=== PATIENT | male | born 1970 | race Caucasian/White ===

== ENCOUNTER 2018-06-06 15:30 | Outpatient (RCR) | payer OTHER, SELFPAY ==
--- NOTE | 2018-05-13 18:13 | HP.PTEVAL ---
Patient's Visit Information CHERELLE COATES is a 47 year old M referred to Physical Therapy by Tejas Austin MD with a diagnosis of L glut med weakness. Date of Evaluation: 05/13/18 Physical Therapist: Wyatt Godfrey DPT, OCS, CSCS - Visit Plan Frequency: 1x/Week Duration: 4-6 Weeks Plan: weekly x 4-6 for stretching(taught to patient today and progress to L and core strength. LB ROM, progression weekly to HEP. Next : SL SLR, clamshell, inchworms, heel raises and toe raises and step up. also PPU. Then: machines in gym for quad, hip abd, glut, DF and core strength. Be conscious of possible back contributins throughout as he has a history of LBO and surgery and is weak in the L side LE with diminished reflexes L patella, possible L45. - Subjective Findings: Had problems with L hip for a bit. Escalated from ache to painful to walk at all. Saw chiropractor and doctor. Doctor thought femur was rotated and moved it back into place. Dr. Austin Used pain meds and stretches to pull it back together. Steps still very apinful and more weak. Pain is Left leg and felt like nerve pain at first. Now more cramping and weakness. Started bothering him months but escalated right before Neri insidiously. Sleeps on left side and lies on left side. Sleepign OK now. No LBP or problem but did have back surgery fusion L5 in 03 and no more sore than usual. Works in software sitting all day. Worse in evening moreso than morning. Keeps him from steps comfortably. Also does not run or workout, likes to run on TM and lift. Basic aDLs are OK. - Pain L hip pain laterally Pain Intensity (Out of 10): 0 Pain Intensity Range: 0, 2 - Objective Slight L trendelenberg in gait but I. Trasnfers I. Steps show obvious weakness L but I, has to throw self up with R leg when stepping up with L. LB AROM ext shows some slight L LBP and mod deficits. flexion is min deficits, B SB with Min deficits. Hip AROM limited to 4 degrees ext B otherwise WFL. Strength HIPS: ABD L 3 and R 4-. ext 3 L and 3+ R. adduction 4 L and 4+R. hip flexion 4- L and 4+R. quad 4- L and 4+ R. knee flexion 4 B. DF 4 L and 4+R. Definite weakness L sided glut med, quad, DF adn hip extension and flexion vs. R side. HS -25 90/90 test, quad on L very tight and painful to stretch vs R. Knee aROM WFL as is ankles. reflexes 2/3 R patella and 1/3 L patella, 2/3 B achilles. Sensation LE WNL to gross light touch. - Goals Goal 1:: Patient be I in appropriate hip and LE and core strength without pain Goal Time Frame: 4-6 Weeks Goal 2:: Pt feel L LE strong enough to push him up steps comfortably Goal Time Frame: 4-6 Weeks Goal 3:: Pt feel pain in L hip abolished Goal Time Frame: 4-6 Weeks Goal 4:: Plan to return to running. Goal Time Frame: 4-6 Weeks - Rehabilitation Potential Physical Therapy Diagnosis: L LE weakness and tightness causing pain, possibly back related. Rehabilitation Potential: Fair - Anticipated Interventions Patient/Client Instruction: Educate patient on: Condition For the Purpose of:: To decrease pain, To improve muscle performance and motor function, To improve ability of physical actions for home/community/work/leisure Therapeutic Exercise to Include: Strength training, Flexibilty training, Passive ROM, Active ROM For the Purpose of:: To improve muscle performance and motor function, To improve ability of physical actions for home/community/work/leisure Thank you for the opportunity to evaluate your patient. For Medicare and Medicare HMO plans, please review the plan of care and approve it. It will need to be FAXED BACK to us at [phone] for Medicare purposes. For Medicare only, by signing this I certify the plan of care. Please let me know if there are questions or concerns regarding this plan of care. Physician Signature: Date:
--- NOTE | 2018-06-06 16:00 | HP.PTDCSUM ---
HP - PT D/C Summary It has been my pleasure to treat CHERELLE COATES under orders from Tejas Austin MD, for the diagnosis of L glut med weakness for a total of 4 visit(s). Discharge Date: 06/06/18 Please see the following information for a summary of their discharge status. - Subjective Subjective: Doing good. Able to climb steps without rail easier. Not alot of pain. No plan to see doctor. - Pain L hip pain laterally Pain Intensity (Out of 10): 0 - Overall Improvement % Improvement: 50 - Objective Objective/Function: LB AROM limited min in all directions btu not painful. LE strength L hip flexion adn abd 4+/ adn other leg 5/5. Other muscles in knees and ankles 5/5 except L quad which cramps up with testing at 4+. Also has 1/3 L patella reflex vs 2 on R. - Goals Goal 1:: Patient be I in appropriate hip and LE and core strength without pain Goal Progress: Goal Met Goal 2:: Pt feel L LE strong enough to push him up steps comfortably Goal Progress: Goal Met Goal 3:: Pt feel pain in L hip abolished Goal Progress: Goal Met Goal 4:: Plan to return to running. Goal Progress: June - Plan Plan: D/C, pt to continue ex and progression per our discussion and monitor LB adn leg for symptoms and contact doctor if they return. - D/C Information Discharge Comments: Pt I in appropriate HEP in gym and home for hip strength emphasizing consistency, slow progression to power ex adn jog in early June if still doing well. Will call doctor if pain returns. If there are questions or concerns regarding this patient's physical therapy, please feel free to call me at [phone]. Thank you for the referral of this patient. Sincerely, Wyatt Godfrey, DPT, OCS, CSCS
== END 2018-06-06 19:00 | disposition home or self-care (01) ==
LOC: PT 15:30
PROVIDERS: Family Provider Family Medicine; PCP Family Medicine; Referring Provider Family Medicine; Visit Provider Family Medicine
DX: M25.552 Pain in left hip (principal); M62.81 Muscle weakness (generalized)
CPT/HCPCS: 97110; 97162; 97530

== ENCOUNTER 2018-10-16 17:39 | Emergency (ER) | payer OTHER, SELFPAY ==
[2018-10-16 17:39] VITALS: BP 123/79; PULSE 77; RESP 16; TEMP 37.2; O2SAT 95; BMI 38.7
--- NOTE | 2018-10-16 18:00 | CT_ITS ---
STUDY: CT ABDOMEN AND PELVIS WITHOUT CONTRAST REASON FOR EXAM: Male, 47 years old. Left lower quadrant pain RADIATION DOSAGE (If Supplied By Facility): CTDIvol = ( 14.80 ) mGy, DLP = ( 874.06 ) mGycm TECHNIQUE: Transaxial images were obtained from the dome of the diaphragm to the symphysis pubis without oral contrast, and without intravenous contrast. Sagittal and coronal images were reconstructed. Individualized dose optimization techniques were used for this CT. COMPARISON: None. FINDINGS: Evaluation of the abdominal viscera is limited in the absence of intravenous contrast. The visualized lung bases are clear. The visualized portions of the heart and pericardium are within normal limits. There are no calcified gallstones present. The liver demonstrates an unremarkable unenhanced appearance. The spleen is normal in size. The pancreas demonstrates an unremarkable unenhanced appearance. The adrenal glands are within normal limits. There are subcentimeter nonobstructing stones in the collecting system of the right kidney, measuring up to 3 mm. There are no additional urinary calculi. There is no hydronephrosis Normal visualized stomach. There is no bowel obstruction or inflammation. The appendix is normal. There is a small fat-containing umbilical hernia. There is no bowel containing hernia. The aorta is normal in caliber. There is no abdominal or pelvic free air, free fluid, fluid collection or lymphadenopathy. There are no destructive osseous lesions. There is fusion hardware noted spanning L5/S1. CT/Abdomen/Pelvis without Cont IMPRESSION: Subcentimeter nonobstructing right renal collecting system stones. No additional urinary calculi. No hydronephrosis. No bowel obstruction or inflammation. Normal appendix. Small fat-containing umbilical hernia. No bowel containing hernia. Electronically Signed: David Palmer, at 19:01 EDT Tel , Service support ,
[2018-10-16] MEDS: 0.9% Normal Saline 1,000 ML 1000 ML IV (18:20)
[2018-10-16] MEDS: Ketorolac 30 MG/ML Syringe IV (18:20)
[2018-10-16 18:48] LABS: Absolute Lymphocyte Count 3.02 X10^3/ul (0.83-4.51); Basophil# 0.08 X10^3/uL; Basophil% 0.9 % (0-1); Eosinophil# 0.23 X10^3/uL; Eosinophils% 2.5 % (0-5); Hematocrit 49.7 % (40-54); Hemoglobin 16.4 g/dl (13.0-16.5); Lymphocyte # 3.02 X10^3/ul (4.0); Lymphocyte % 32.8 % (19-41); Mean Corpuscular Volume 87.8 fL (80-94); Monocyte% 9.8 % (0-10); Neutrophil # 4.96 X10^3/uL (2.7-7.7); Neutrophil % 53.7 % (47-70); Platelet Count 239 K/mm3 (150-450); RBC Distribution Width CV 13.2 % (11.6-14.6); Red Blood Count 5.66 M/mm3 (4.6-6.2); White Blood Count 9.2 K/mm3 (4.4-11.0)
[2018-10-16 18:51] LABS: POSITIVE COUNT NO; POSITIVE DIFFERENTIAL NO; POSITIVE MORPHOLOGY NO
[2018-10-16 18:56] LABS: Bacteria 0 SEEN /hpf (None Seen); Mucous, Urine 0 SEEN /hpf (<or=2+); Red Blood Cells-Urine 0 SEEN /hpf (0-5); Squamous Epithelial Cells - UA 0 SEEN /hpf (0-5); White Blood Cells 0 SEEN /hpf (0-5)
[2018-10-16 19:05] LABS: Anion Gap 7 (5-15); BUN 22 mg/dL (7-18); BUN/Creat Ratio 18.5 RATIO (10-20); Calcium,Total 9.1 mg/dL (8.5-10.1); Chloride 105 mmol/L (98-107); Creatinine, Serum 1.19 mg/dL (0.70-1.30); EST Glomerular Filtration Rate 69 mL/min (>60); Est Glom Filt Rate - Afr Amer 84 mL/min (>60); Estimated Creatinine Clearance 76.74 ml/min; Glucose 96 mg/dL (74-106); Potassium 4.2 mmol/L (3.5-5.1); Sodium Level 142 mmol/L (136-145)
[2018-10-16 19:07] LABS: Color, Urine Yellow (Yellow); Glucose, Dipstick Normal (Normal); Ketone-Dipstick Negative (Negative); Leukocyte Esterase-Dipstick Negative /ul (Negative); Nitrite-Dipstick Negative (Negative); Occult Blood-Urine Negative /ul (Negative); Protein-Dipstick Negative (Negative); Urine Bilirubin Dipstick Negative (Negative); Urine Clarity Clear (Clear); Urine Urobilinogen Normal (Normal)
--- NOTE | 2018-10-16 19:07 | ED.DCSUM_ITS ---
- ER Visit Summary Date of Service: 10/16/18 Chief Complaint: Abdominal pain History of Present Illness: The patient is a [address] Calvo. He reports that he has left upper quadrant and left flank pain that began approximate 1 week ago. Is a continuous pain that waxes and wanes. He describes it as cramping. It is 6 out of 10 at worst and 4-10 currently. It is worsened by food and relieved by laying flat. He denies any associated nausea or vomiting. He thought he was constipated has been taking milk of magnesia. Following that he is having 4 watery stools per day. No blood in his stools or black tarry stools. No dysuria, frequency, or hematuria. Physical Examination: Vitals: Stable. Afebrile. General: Well-nourished and well-developed. Head: Normocephalic atraumatic. Neck: Supple, no lymphadenopathy. No JVD. Nontender. Cardiovascular: Regular rate and rhythm. No murmurs. Respiratory: No respiratory distress. Clear to auscultation bilaterally. Abdominal: Soft, mild tenderness palpation left upper quadrant, nondistended, normal bowel sounds. No guarding, rebound, or peritoneal signs. Back: Nontender. Extremities: Nontender, no edema. Skin: Normal color, no rash. Neurologic: Alert and oriented ?3. Cranial nerves II through XII are intact. Normal strength and sensation. Psych: Normal affect. Test Results: CBC is normal. Chem-7 shows a BUN of 22. UA is negative. Clinical Impression(s) from Imaging Studies Abdomen/Pelvis CT 10/16/18 18:00 IMPRESSION: Subcentimeter nonobstructing right renal collecting system stones. No additional urinary calculi. No hydronephrosis. No bowel obstruction or inflammation. Normal appendix. Small fat-containing umbilical hernia. No bowel containing hernia. Electronically Signed: David Estela, at 19:01 EDT Tel , Service support , Emergency Department Course and Treatment: Patient was treated with a dose of Toradol and is resting comfortably. Treatment Plan: Patient will be discharged prescription for Lea and Aisha. Instructed to follow-up Dr. Calvo in 1 to 2 days if not improving. Return to the emergency department for any worsening symptoms. Disposition: To home in improved and stable condition. Impression: 1. Abdominal pain, uncertain cause. This note was generated with [employer] dictation software. It may contain incorrect words, spelling, and punctuation that were not noted in review of the chart prior to signing ED Disposition - Plan for ED Patient: Instructions: ABDOMINAL PAIN, Unkown Cause, (Male) Prescriptions: Dicyclomine HCl [Bentyl] 20 mg PO TIDAC #20 capsule Hydrocodone Bitart/Apap 5-325 [[place] 5MG-325MG] 1 tablet PO Q4H PRN PRN 2 Days #10 tablet PRN Reason: Pain Referrals: Tejas Austin MD [Primary Care Provider] - 1-2 Days if not improving
[2018-10-16 19:57] VITALS: BP 148/83; PULSE 65; RESP 18; O2SAT 95
== END 2018-10-16 19:58 | disposition home or self-care (01) ==
LOC: ED 18:05
PROVIDERS: Emergency Provider Emergency Medicine; Family Provider Family Medicine; PCP Family Medicine
DX: R10.32 Left lower quadrant pain (principal); K42.9 Umbilical hernia without obstruction or gangrene; R19.7 Diarrhea, unspecified
CPT/HCPCS: 74176; 80048; 81001; 85025; 96361; 96374; 99283; J7030